=== PATIENT | female | born 1965 | race Caucasian/White ===

== ENCOUNTER 2018-10-26 02:16 | Emergency (ER) | payer MEDICARE, MEDICAID ==
[~2018-10-26] VITALS: Ht 172.7 cm; Wt 57.6 kg
[~2018-10-26 02:16] MED LIST: ADULT LOW DOSE81 MG PO; ALBUTEROL INHAL17 GM IH; PREDNISONE50 MG PO; PROVENTIL; ZPAK PO
[2018-10-26] MEDS ORDERED: MAGOX 400400 MG (02:37)
[2018-10-26] MEDS ORDERED: KLOR-CON 1010 MEQ (02:37)
[2018-10-26] MEDS ORDERED: VITAMIN B-12500 MCG (02:38)
[2018-10-26] MEDS ORDERED: MEDROLDOSEPACK PO (03:15)
[2018-10-26] MEDS ORDERED: NORCO 7.5-3251 EACH PO (03:15)
[2018-10-26 03:31] VITALS: BP 97/61
== END 2018-10-26 03:31 | disposition home or self-care (01) ==
LOC: M.ERS 02:16
DX: M77.8 Other enthesopathies, not elsewhere classified (principal); J44.9 Chronic obstructive pulmonary disease, unspecified; F17.210 Nicotine dependence, cigarettes, uncomplicated; Z88.8 Allergy status to other drugs, medicaments and biological substances; Z98.890 Other specified postprocedural states; Z87.01 Personal history of pneumonia (recurrent)

== ENCOUNTER 2019-01-23 15:03 | Emergency (ER) | payer MEDICARE, MEDICAID ==
[~2019-01-23] VITALS: Ht 172.7 cm; Wt 56.7 kg
[~2019-01-23 15:03] MED LIST changes: +KLOR-CON 1010 MEQ; +MAGOX 400400 MG; +MEDROLDOSEPACK PO; +NORCO 7.5-3251 EACH PO; +VITAMIN B-12500 MCG
[2019-01-23 15:58] VITALS: BP 134/66
== END 2019-01-23 15:59 | disposition home or self-care (01) ==
LOC: M.ERS 15:03
DX: S60.212A Contusion of left wrist, initial encounter (principal); J44.9 Chronic obstructive pulmonary disease, unspecified; F17.210 Nicotine dependence, cigarettes, uncomplicated; Z98.890 Other specified postprocedural states; Z88.5 Allergy status to narcotic agent; W03.XXXA Other fall on same level due to collision with another person, initial encounter; Y93.89 Activity, other specified; Y92.89 Other specified places as the place of occurrence of the external cause; Y99.8 Other external cause status

== ENCOUNTER 2019-03-03 11:45 | Emergency (ER) | payer MEDICARE, MEDICAID ==
[~2019-03-03] VITALS: Ht 167.6 cm; Wt 63.5 kg
[2019-03-03] MEDS ORDERED: ADVAIR HFA 230M12 GM INH (12:01)
[2019-03-03] MEDS ORDERED: XANAX 0.5 MG0.5 MG PO (12:01)
[2019-03-03] MEDS ORDERED: MOBIC7.5 MG PO (12:01)
[2019-03-03] MEDS ORDERED: NORCO 5-325 TA1 EACH PO (13:28)
[2019-03-03 13:59] VITALS: BP 137/86
== END 2019-03-03 14:00 | disposition home or self-care (01) ==
LOC: M.ERS 11:45
DX: S63.592A Other specified sprain of left wrist, initial encounter (principal); J44.9 Chronic obstructive pulmonary disease, unspecified; F41.9 Anxiety disorder, unspecified; F32.9 Major depressive disorder, single episode, unspecified; F17.210 Nicotine dependence, cigarettes, uncomplicated; Z86.73 Personal history of transient ischemic attack (TIA), and cerebral infarction without residual deficits; Z88.8 Allergy status to other drugs, medicaments and biological substances; Y08.89XA Assault by other specified means, initial encounter; Y93.89 Activity, other specified; Y92.89 Other specified places as the place of occurrence of the external cause; Y99.8 Other external cause status